=== PATIENT | male | born 1945 | race Caucasian/White ===

== ENCOUNTER 2017-07-25 02:38 | Emergency (ER) | payer SELFPAY ==
[~2017-07-25] VITALS: Ht 165.1 cm; Wt 76.2 kg
--- NOTE | 2017-07-25 02:56 | NUR ---
BIBRA C/O "FLU LIKE SYMPTOMS AND RAVI FEET WEAKNESS S/P WALKING TOO MUCH" PT AOX3 RR EVEN AND UNLABORD. NO SOB NOTED. NAD NOTED. NO NVD AT THIS TIME. PT GOWNED AND PLACED ON MONITOR WAITING FOR DM EVAL.
--- NOTE | 2017-07-25 03:00 | NUR ---
URINE COLLECTED. CALLED LAB FOR [facility].
--- NOTE | 2017-07-25 03:25 | NUR ---
LAB AT BEDSIDE FOR BLOOD DRAW
[2017-07-25] MEDS ORDERED: ONDANSETRON HCL/PF 4 MG/2 ML VIAL IVP ONE (03:30)
[2017-07-25] MEDS ORDERED: IV NS 0.9% 1,000 ML BAG IV ONE (03:30)
--- NOTE | 2017-07-25 03:34 | NUR ---
RADIOLOGY AT BEDSIDE FOR CXR
--- NOTE | 2017-07-25 03:34 | NUR ---
Laura thompson in [facility] - 07/25/17 at 0438 by [facility] RADIOLOGY AT BEDSIDE FOR BLOOD DRAW
[2017-07-25] MEDS ORDERED: ONDANSETRON HCL/PF 4 MG/2 ML VIAL ONE (03:37)
[2017-07-25 03:40] LABS: BASOPHILS % (AUTO) 0.3 % (0.0-2.0); EOSINOPHILS # (AUTO) 0.1 /CMM (0.0-0.7); EOSINOPHILS % (AUTO) 0.8 % (0.0-6.0); HEMATOCRIT 39 % (39-51); HEMOGLOBIN 13.6 g/dL (13.5-17.5); LYMPHOCYTES # (AUTO) 0.4 /CMM (0.8-4.8); MEAN CORPUSCULAR HEMOGLOBIN 31 PG (26.0-33.0); MEAN CORPUSCULAR HGB CONC 35 g/dl (31.0-36.0); MEAN CORPUSCULAR VOLUME 90 fL (80-96); MONOCYTES # (AUTO) 0.4 /CMM (0.1-1.30); MONOCYTES % (AUTO) 5.4 % (2.0-12.0); NEUTROPHILS # (AUTO) 6.9 /CMM (1.8-8.9); NEUTROPHILS % (AUTO) 88.5 % (43.0-81.0); PLATELET COUNT (AUTO) 129 /CMM (150-450); RDW COEFFICIENT OF VARIATION 13.8 (11.5-15.0); RED BLOOD CELL COUNT(AUTO) 4.34 MIL/uL (4.5-6.0); WHITE BLOOD COUNT (AUTO) 7.8 K/uL (4.3-11.0)
[2017-07-25 03:52] LABS: CALCIUM, SERUM 8.5 mg/dL (8.5-10.1); CARBON DIOXIDE 26 mmol/L (21-32); CHLORIDE 106 mmol/L (98-107); GLUCOSE 99 mg/dL (74-106); POTASSIUM 3.7 mmol/L (3.5-5.1); SODIUM SERUM 143 mmol/L (136-145); UREA NITROGEN, BLOOD 15 mg/dL (7-18)
[2017-07-25 03:53] LABS: INR 1.07 (0.87-1.13)
[2017-07-25 03:58] LABS: ALANINE AMINOTRANSFERASE 24 U/L (12-78); ALBUMIN 4.2 g/dL (3.4-5.0); ALKALINE PHOSPHATASE 63 U/L (46-116); ASPARTATE AMINOTRANSFERASE 22 U/L (15-37); BILIRUBIN,DIRECT 0.2 mg/dL (0.0-0.2); BILIRUBIN,TOTAL 0.8 mg/dL (0.2-1.0); TOTAL PROTEIN, SERUM 7.4 g/dL (6.4-8.2); TROPONIN I < 0.017 ng/mL (0.00-0.056)
[2017-07-25 03:59] LABS: ACETAMINOPHEN 0 ug/ml (10-30); ALCOHOL, BLOOD < 3 mg/dL (0-0); SALICYLATE 0.2 mg/dL (2.8-20.0)
[2017-07-25 04:06] LABS: APPEARANCE,URINE CLEAR (CLEAR); BILIRUBIN,URINE NEGATIVE (NEGATIVE); BLOOD, URINE NEGATIVE Ery/uL (NEGATIVE); COLOR,URINE YELLOW (YELLOW); KETONES,URINE NEGATIVE (NEGATIVE); LEUKOCYTE ESTERASE ,URINE NEGATIVE (NEGATIVE); NITRITE, URINE NEGATIVE (NEGATIVE); PH,URINE 6.5 (5.0-8.0); PROTEIN,URINE 1+ mg/dl (NEGATIVE); UGLUCOSE NEGATIVE (NEGATIVE)
[2017-07-25 04:12] LABS: RBC,URINE NONE SEEN /HPF (0-2)
[2017-07-25 04:13] LABS: BACTERIA,URINE None seen /HPF (None Seen); SQUAMOUS EPITHELIAL CELL,UR Rare /HPF (None Seen); WBC,URINE 0-2 /HPF (0-3)
--- NOTE | 2017-07-25 05:30 | NUR ---
IV removed. Catheter intact and site benign. Pressure and 4x4 applied to site. No bleeding noted. Patient discharged to home in stable condition. Written and verbal after care instructions given. Patient verbalizes understanding of instruction. ambulatory with a steady gait
[2017-07-25 05:31] VITALS: BP 120/77
== END 2017-07-25 05:32 | disposition home or self-care (01) ==
LOC: ER 02:47
DX: R53.1 Weakness (principal); K30 Functional dyspepsia; Z59.0 Homelessness; Z60.2 Problems related to living alone
CPT/HCPCS: 36415; 71045; 80048; 80076; 80305; 80329; 81001; 83690; 84484; 85025; 85730; 93005; 96361; 96374; 99285; A4606; G0480 ×2; J2405; J7030; Z7610; 81000-TC